=== PATIENT | female | born 1965 | race Caucasian/White ===

== ENCOUNTER 2019-09-03 00:37 | Emergency (ER) | payer OTHER ==
--- OUTSIDE RECORDS SUMMARY | 2019-09-03 00:40 | XMS REPORT ---
:1965 [facility] Address [address] [place] [address] Dr. Nolan [address] [place] [id number] Care Team Providers Name Role Phone Unavailable Unavailable Unavailable Problems This patient has no known problems. Allergies, Adverse Reactions, Alerts This patient has no known allergies or adverse reactions. Medications This patient has no known medications.
[2019-09-03] MEDS ORDERED: FENTANYL CITR 100 MCG/2 ML ONE (01:37)
--- NOTE | 2019-09-03 02:07 | ER ---
Nurse's Notes [facility] Name: Charis Siegel Age: 54 yrs Sex: Female : 1965 Arrival Date: 09/03/2019 Time: 00:40 Bed 8 Private MD: Diagnosis: Pain in right shoulder Presentation: 09/03 00:52 Presenting complaint: Patient states: "I got up out of bed and I guess I fainted. when jd3 I woke up I was having a lot of right shoulder pain. I guess I just stood up to fast, but it is hard to move my right shoulder.". Transition of care: patient was not received from another setting of care. Onset of symptoms was September 03, 2019. Risk Assessment: Do you want to hurt yourself or someone else? Patient reports no desire to harm self or others. Initial Sepsis Screen: Does the patient meet any 2 criteria? No. Patient's initial sepsis screen is negative. Does the patient have a suspected source of infection? No. Patient's initial sepsis screen is negative. Care prior to arrival: None. 00:52 Method Of Arrival: Ambulatory jd3 00:52 Acuity: LIZBETH 4 jd3 Historical: - Allergies: 00:56 No Known Allergies; jd3 - Home Meds: 00:56 Metoprolol Tartrate Oral [Active]; Ritalin Oral [Active]; temazepam Oral [Active]; jd3 Valium Oral [Active]; - PMHx: 00:56 ADD/ADHD; Rheumatoid Arthritis; Hypertension; High Cholesterol; jd3 - PSHx: 00:56 Left Elbow Surgery; Left Knee; Hysterectomy; jd3 - Immunization history:: Adult Immunizations up to date. - Coronavirus screen:: The patient has NOT traveled to [place] in the past 14 days. The patient has NOT had contact with known/suspected case of Coronavirus? Proceed with normal triage procedures. - Social history:: Smoking status: Patient/guardian denies using tobacco, but has a distant history of tobacco abuse. - Ebola Screening: : Patient negative for fever greater than or equal to 101.5 degrees Fahrenheit, and additional compatible Ebola Virus Disease symptoms. Screenin:58 Abuse screen: Denies threats or abuse. Nutritional screening: No deficits noted. jd3 Tuberculosis screening: No symptoms or risk factors identified. Fall Risk Ambulatory Aid- None/Bed Rest/Nurse Assist (0 pts). Gait- Normal/Bed Rest/Wheelchair (0 pts) Mental Status- Oriented to own ability (0 pts). Total Fair Fall Scale indicates No Risk (0-24 pts). Assessment: 00:56 General: Appears in no apparent distress. uncomfortable, Behavior is calm, cooperative, jd3 appropriate for age. Pain: Complains of pain in right shoulder Quality of pain is described as sharp, tender. Neuro: Level of Consciousness is awake, alert, obeys commands, Oriented to person, place, time, situation, Gait is steady, Speech is normal, Pupils are PERRLA, Intact Reports a syncopal episode. Cardiovascular: Denies chest pain, Capillary refill Patient's skin is warm and dry. Respiratory: Airway is patent Respiratory effort is even, unlabored, Respiratory pattern is regular, symmetrical, Denies cough, shortness of breath. GI: No signs and/or symptoms were reported involving the gastrointestinal system. Patient currently denies abdominal pain, diarrhea, nausea, vomiting. : No signs and/or symptoms were reported regarding the genitourinary system. EENT: No signs and/or symptoms were reported regarding the EENT system. Derm: Skin is intact, Skin is dry, Skin is normal, Skin temperature is warm. Musculoskeletal: Circulation, motion, and sensation intact. Range of motion: limited in right shoulder. 01:30 Reassessment: Patient appears in no apparent distress at this time. No changes from jd3 previously documented assessment. Patient and/or family updated on plan of care and expected duration. Pain level reassessed. Patient is alert, oriented x 3, equal unlabored respirations, skin warm/dry/pink. 02:29 Reassessment: Patient appears in no apparent distress at this time. Patient and/or jd3 family updated on plan of care and expected duration. Pain level reassessed. Patient is alert, oriented x 3, equal unlabored respirations, skin warm/dry/pink. pt reported understanding of discharge instructions. assisted pt to vehicle with family and wheelchair. Patient states feeling better. Vital Signs: 00:56 BP 137 / 65; Pulse 63; Resp 19 S; Temp 98.4(O); Pulse Ox 100% on R/A; Weight 95.25 kg jd3 (R); Height 5 ft. 4 in. (162.56 cm) (R); Pain 4/10; 02:29 BP 136 / 70; Pulse 67; Resp 17 S; Pulse Ox 100% on R/A; jd3 02:31 BP 136 / 70; Pulse 65; Resp 17 S; Pulse Ox 100% on R/A; jd3 00:56 Body Mass Index 36.05 (95.25 kg, 162.56 cm) jd3 ED Course: 00:40 Patient arrived in ED. jg7 00:45 Chinedu Looney NP is PHCP. pm1 00:45 Fran Candelaria MD is Attending Physician. pm1 00:52 Fausto Carroll RN is Primary Nurse. jd3 00:54 Triage completed. jd3 00:56 Arm band placed on. jd3 00:58 Patient has correct armband on for positive identification. Bed in low position. Call jd3 light in reach. Side rails up X 1. Adult w/ patient. 02:05 Alex Sanchez MD is Referral Physician. pm1 02:30 No provider procedures requiring assistance completed. Patient did not have IV access jd3 during this emergency room visit. Sling applied to right arm. Administered Medications: 01:37 Drug: fentaNYL (PF) 50 mcg Route: IM; Site: left deltoid; jd3 02:31 Follow up: Response: No adverse reaction; RASS: Alert and Calm (0) jd3 02:14 Drug: [place] 5 mg-325 mg 1 tabs Route: PO; jd3 02:31 Follow up: Response: Medication administered at discharge. jd3 Outcome: 02:05 Discharge ordered by . pm1 02:30 Discharged to home via wheelchair, with family. jd3 02:30 Condition: stable 02:30 Discharge instructions given to patient, family, Instructed on discharge instructions, follow up and referral plans. medication usage, Demonstrated understanding of instructions, follow-up care, medications, Prescriptions given X 1. 02:32 Patient left the ED. jd3 Signatures: Chinedu Looney NP [employer] pm1 Fausto Carroll, RN RN jd3 Jaki Robles jg7
--- NOTE | 2019-09-03 02:07 | EDPHYS ---
Physician Documentation [facility] Name: Charis Siegel Age: 54 yrs Sex: Female : 1965 Arrival Date: 09/03/2019 Time: 00:40 Bed 8 Private MD: ED Physician Fran Candelaria HPI: 09/03 01:02 This 54 yrs old Female presents to ER via Ambulatory with complaints of Fall pm1 Injury, Shoulder Pain. 01:02 Details of fall: The patient fell from an upright position, while standing. Onset: The pm1 symptoms/episode began/occurred just prior to arrival. Associated injuries: The patient sustained right shoulder. The patient has not experienced similar symptoms in the past. The patient has not recently seen a physician. 01:02 Patient got up to fast from bed and fainted and fell on her right shoulder. Pain with pm1 movement and she reports that there was a prior bump to her right shoulder that is no longer present. Historical: - Allergies: 00:56 No Known Allergies; jd3 - Home Meds: 00:56 Metoprolol Tartrate Oral [Active]; Ritalin Oral [Active]; temazepam Oral [Active]; jd3 Valium Oral [Active]; - PMHx: 00:56 ADD/ADHD; Rheumatoid Arthritis; Hypertension; High Cholesterol; jd3 - PSHx: 00:56 Left Elbow Surgery; Left Knee; Hysterectomy; jd3 - Immunization history:: Adult Immunizations up to date. - Coronavirus screen:: The patient has NOT traveled to [place] in the past 14 days. The patient has NOT had contact with known/suspected case of Coronavirus? Proceed with normal triage procedures. - Social history:: Smoking status: Patient/guardian denies using tobacco, but has a distant history of tobacco abuse. - Ebola Screening: : Patient negative for fever greater than or equal to 101.5 degrees Fahrenheit, and additional compatible Ebola Virus Disease symptoms. ROS: 01:02 Constitutional: Negative for fever, chills, and weight loss, Eyes: Negative for injury, pm1 pain, redness, and discharge, ENT: Negative for injury, pain, and discharge, Neck: Negative for injury, pain, and swelling, Cardiovascular: Negative for chest pain, palpitations, and edema, Respiratory: Negative for shortness of breath, cough, wheezing, and pleuritic chest pain, Abdomen/GI: Negative for abdominal pain, nausea, vomiting, diarrhea, and constipation, Back: Negative for injury and pain. 01:02 Skin: Negative for injury, rash, and discoloration, Neuro: Negative for headache, weakness, numbness, tingling, and seizure. 01:02 MS/extremity: Positive for pain, of the right shoulder. Exam: 01:02 Constitutional: This is a well developed, well nourished patient who is awake, alert, pm1 and in no acute distress. Head/Face: Normocephalic, atraumatic. Neck: Trachea midline, no thyromegaly or masses palpated, and no cervical lymphadenopathy. Supple, full range of motion without nuchal rigidity, or vertebral point tenderness. No Meningismus. Chest/axilla: Normal chest wall appearance and motion. Nontender with no deformity. No lesions are appreciated. Cardiovascular: Regular rate and rhythm with a normal S1 and S2. No gallops, murmurs, or rubs. Normal PMI, no JVD. No pulse deficits. Respiratory: Lungs have equal breath sounds bilaterally, clear to auscultation and percussion. No rales, rhonchi or wheezes noted. No increased work of breathing, no retractions or nasal flaring. Abdomen/GI: Soft, non-tender, with normal bowel sounds. No distension or tympany. No guarding or rebound. No evidence of tenderness throughout. Back: No spinal tenderness. No costovertebral tenderness. Full range of motion. 01:02 Musculoskeletal/extremity: Extremities: grossly normal except: noted in the right shoulder: tenderness, Patient is able to move right forearm medially and laterally with elbow bent 90 degrees and supinate and pronate. Reports pain with adducting her right arm, Circulation is intact in all extremities. no obvious deformity present. 01:02 Neuro: Orientation: is normal, Motor: is normal, moves all fours. Vital Signs: 00:56 BP 137 / 65; Pulse 63; Resp 19 S; Temp 98.4(O); Pulse Ox 100% on R/A; Weight 95.25 kg jd3 (R); Height 5 ft. 4 in. (162.56 cm) (R); Pain 4/10; 02:29 BP 136 / 70; Pulse 67; Resp 17 S; Pulse Ox 100% on R/A; jd3 02:31 BP 136 / 70; Pulse 65; Resp 17 S; Pulse Ox 100% on R/A; jd3 00:56 Body Mass Index 36.05 (95.25 kg, 162.56 cm) jd3 MDM: 00:57 Patient medically screened. pm1 02:05 Data reviewed: vital signs. Data interpreted: Pulse oximetry: on room air is 100 %. pm1 Interpretation: normal. Counseling: I had a detailed discussion with the patient and/or guardian regarding: the historical points, exam findings, and any diagnostic results supporting the discharge/admit diagnosis, radiology results, the need for outpatient follow up, for definitive care, a orthopedic surgeon, to return to the emergency department if symptoms worsen or persist or if there are any questions or concerns that arise at home. 02:05 Differential diagnosis: fracture, shoulder dislocation, ac separation, fracture, pm1 rotator cuff injury. 09/03 01:02 Order name: Shoulder Right (2 View) XRAY pm1 09/03 02:05 Order name: Sling; Complete Time: 02:14 pm1 Administered Medications: 01:37 Drug: fentaNYL (PF) 50 mcg Route: IM; Site: left deltoid; jd3 02:31 Follow up: Response: No adverse reaction; RASS: Alert and Calm (0) jd3 02:14 Drug: [place] 5 mg-325 mg 1 tabs Route: PO; jd3 02:31 Follow up: Response: Medication administered at discharge. jd3 Disposition: 06:13 Co-signature as Attending Physician, Fran Candelaria MD I agree with the assessment and tw4 plan of care. Disposition: 09/03/19 02:05 Discharged to Home. Impression: Pain in right shoulder. - Condition is Stable. - Discharge Instructions: Shoulder Pain, How to Use a Sling. - Prescriptions for Tylenol- Codeine #3 300-30 mg Oral Tablet - take 2 tablets by ORAL route every 6 hours As needed; 20 tablet. - Medication Reconciliation Form, Thank You Letter, Antibiotic Education, Prescription Opioid Use, Family Work Release form. - Follow up: Emergency Department; When: As needed; Reason: Worsening of condition. Follow up: Alex Sanchez MD; When: 2 - 3 days; Reason: Recheck today's complaints, Continuance of care, Re-evaluation by your physician. - Problem is new. - Symptoms have improved. Signatures: Dispatcher [employer] EDMS Chinedu Looney, ATIYA [employer] pm1 Fausto Carroll, RN RN jd3 Fran Candelaria MD MD tw4 Corrections: (The following items were deleted from the chart) 02:32 02:05 09/03/2019 02:05 Discharged to Home. Impression: Pain in right shoulder. jd3 Condition is Stable. Forms are Medication Reconciliation Form, Thank You Letter, Antibiotic Education, Prescription Opioid Use. Follow up: Emergency Department; When: As needed; Reason: Worsening of condition. Follow up: Dr. Alex Sanchez; When: 2 - 3 days; Reason: Recheck today's complaints, Continuance of care, Re-evaluation by your physician. Problem is new. Symptoms have improved. pm1 03:37 02:05 Differential diagnosis: fracture, shoulder dislocation, ac separation, fracture, pm1 pm1
[2019-09-03] MEDS ORDERED: HYDROCODONE/APAP 5/325 MG TAB ONE (02:12)
--- NOTE | 2019-09-03 09:23 | RAD REPORT ---
EXAM DESCRIPTION: Shoulder Right 2 View - 09/03/2019 1:21 am CLINICAL HISTORY: PAIN COMPARISON: No comparisons TECHNIQUE: Internal and external rotation views of the right shoulder were obtained. FINDINGS: There is no fracture or dislocation. AC joint is normal in appearance. No acute or suspic ious findings. IMPRESSION: Negative two-view right shoulder examination.
[2019-09-04 16:12] VITALS: TEMP 98.4; O2SAT 100
[2019-09-04 16:14] VITALS: BP 136/70
== END 2019-09-03 02:32 | disposition home or self-care (01) ==
LOC: ER 00:37
DX: M25.511 Pain in right shoulder (principal); I10 Essential (primary) hypertension; E78.00 Pure hypercholesterolemia, unspecified; F90.9 Attention-deficit hyperactivity disorder, unspecified type
CPT/HCPCS: 73030; 96372; 99283; J3010